=== PATIENT | male | born 1995 | race African-American/Black ===

== ENCOUNTER 2017-05-22 15:19 | Inpatient (IN) | payer OTHER ==
[~2017-05-22] VITALS: Ht 177.8 cm; Wt 152.9 kg
[~2017-05-22 15:19] MED LIST: CITALOPRAM HBR20 MG PO; GABAPENTIN100 MG PO; PROZAC40 MG PO
[2017-05-22 16:26] LABS: HEMATOCRIT 44.7 % (38.0-50.0); HEMOGLOBIN 15.5 G/DL (12.5-16.6); MCH 31.4 PG (29.0-34.0); MCHC 34.7 G/DL (30.0-36.0); MCV 90.7 FL (86-99); PLATELET COUNT 197 K/uL (156-360); RED BLOOD COUNT 4.93 M/uL (4.00-5.50); WHITE BLOOD COUNT 9.7 K/uL (4.1-10.2)
[2017-05-22 16:30] LABS: AMPHETAMINE NEGATIVE (500 ng/mL); BARBITURATES NEGATIVE (200 ng/mL); BENZODIAZEPINES NEGATIVE (150 ng/mL); BUPRENORPHINE NEGATIVE (10 ng/mL); COCAINE NEGATIVE (150 ng/mL); METHADONE NEGATIVE (200 ng/mL); METHAMPHETAMINE NEGATIVE (500 ng/mL); OPIATES (MORPHINE) NEGATIVE (100 ng/mL); OXYCODONE NEGATIVE (100 ng/mL); PHENCYCLIDINE NEGATIVE (25 ng/mL); PROPOXYPHENE NEGATIVE (300 ng/mL); THC CANNABINOIDS PRESUMPTIVE POSITIVE (50 ng/mL); TRICYCLIC ANTIDEPRESSANTS NEGATIVE (300 ng/mL)
[2017-05-22 16:36] LABS: CHLORIDE 105 mEq/L (99-109); SODIUM 139 mEq/L (136-147)
[2017-05-22 16:38] LABS: GLUCOSE 91 mg/dL (70-99)
[2017-05-22 16:41] LABS: SERUM ETHYL ALCOHOL < 10 mg/dL
[2017-05-22 16:42] LABS: GFR ESTIMATE (CALCULATED) > 59 mL/min/ (58.99-99999)
[2017-05-22 16:43] LABS: UREA NITROGEN (BUN) 11 mg/dL (9-23)
[2017-05-22] MEDS ORDERED: CELEXA40 MG PO (17:48)
[2017-05-22] MEDS ORDERED: ABILIFY2 MG PO (17:49)
[2017-05-22 18:28] VITALS: BP 137/71
[2017-05-23 07:35] VITALS: BP 134/63
[2017-05-23 15:49] VITALS: BP 128/68
[2017-05-24 07:53] VITALS: BP 123/65
[2017-05-24 15:44] VITALS: BP 128/68
[2017-05-25 07:26] VITALS: BP 142/69
[2017-05-25 15:56] VITALS: BP 152/81
[2017-05-25 20:52] VITALS: BP 163/89
[2017-05-26 08:14] VITALS: BP 103/56
[2017-05-26] MEDS ORDERED: BUPROPION XL150 MG PO (09:33)
[2017-05-26] MEDS ORDERED: ARIPIPRAZOLE5 MG PO (09:33)
== END 2017-05-26 11:50 | disposition home or self-care (01) | DRG 885 ==
LOC: EME 15:19 → 1WEST 16:40 → EDOF 16:40 → ENRESERV 18:23 → 1WEST 18:24
PROVIDERS: Nurse Practitioner Family
DX: F33.2 Major depressive disorder, recurrent severe without psychotic features (principal); R45.851 Suicidal ideations; X78.8XXA Intentional self-harm by other sharp object, initial encounter; Z68.42 Body mass index [BMI] 45.0-49.9, adult; E66.01 Morbid (severe) obesity due to excess calories; S51.812A Laceration without foreign body of left forearm, initial encounter; F60.6 Avoidant personality disorder; F17.210 Nicotine dependence, cigarettes, uncomplicated; F41.8 Other specified anxiety disorders; Y92.009 Unspecified place in unspecified non-institutional (private) residence as the place of occurrence of the external cause; Z82.49 Family history of ischemic heart disease and other diseases of the circulatory system; Z81.4 Family history of other substance abuse and dependence
CPT/HCPCS: 80048; 84999; 85027; 90839; 97150 GO; 97165 GO; 99281; 99283; G0480